=== PATIENT | female | born 1990 | race Hispanic/Latino ===

== ENCOUNTER 2023-01-21 09:18 | Emergency (ER) | payer SELFPAY ==
[2023-01-21] MEDS ORDERED: Lidocaine 1% w/Epinephrine 1:200K 30 ML VIAL ONE (09:47)
[2023-01-21] MEDS ORDERED: Morphine 4 MG/ML VIAL ONE (10:12)
[2023-01-21] MEDS ORDERED: Ondansetron ODT 4 MG TAB ONE (10:16)
== END 2023-01-21 11:29 | disposition home or self-care (01) ==
LOC: CSHERS 09:18
DX: N76.4 Abscess of vulva (principal)
CPT/HCPCS: 56405; 96372; J2270; Q0162